=== PATIENT | male | born 1995 | race Caucasian/White ===

== ENCOUNTER 2017-08-15 14:18 | Emergency (ER) | payer OTHER ==
[~2017-08-15] VITALS: Ht 177.8 cm; Wt 77.1 kg
[~2017-08-15 14:18] MED LIST: AMOXICILLIN500 M1 PO; NORCO 5-325 TA1 EACH PO
[2017-08-15] MEDS ORDERED: NOHOMEMEDICATIONS (14:27)
[2017-08-15 14:44] LABS: ABSOLUTE EOSINOPHILS 0.2 thou/uL (0.0-0.7); ABSOLUTE LYMPHOCYTES 2.2 thou/uL (0.8-5.3); ABSOLUTE MONOCYTES 0.6 thou/uL (0.0-1.2); ABSOLUTE NEUTROPHILS 6.7 thou/uL (1.6-8.1); BASOPHILS 0.3 %; EOSINOPHILS 1.6 %; HEMATOCRIT 46.5 % (42.0-52.0); HEMOGLOBIN 16.1 gm/dL (14.0-18.0); LYMPHOCYTES 22.9 %; MCH 31.7 pg (26.0-34.0); MCHC 34.7 g/dL (28.0-37.0); MCV 91.3 fL (80.0-100.0); MONOCYTES 6.5 %; MPV 7.9 fl. (7.2-11.1); NUCLEATED RBCS 0 /100WBC; PLATELET COUNT* 262 thou/uL (150-400); POLYS 68.7 %; RBC 5.09 mil/uL (4.50-6.00); RDW-CV 13.1 % (10.5-14.5); WBC 9.8 thou/uL (4.0-11.0)
[2017-08-15 14:53] LABS: CALCIUM 8.7 mg/dL (8.5-10.1); CREATININE 0.8 mg/dL (0.6-1.3); POTASSIUM 3.3 mmol/L (3.5-5.1)
[2017-08-15 14:58] LABS: ALBUMIN 3.8 g/dL (3.4-5.0); TOTAL BILIRUBIN 0.5 mg/dL (<0.1-1.0); TOTAL PROTEIN 6.9 g/dL (6.4-8.2)
[2017-08-15] MEDS ORDERED: CLEOCIN HCL150 MG PO (15:51)
[2017-08-15] MEDS ORDERED: NAPROSYN500 MG PO (15:51)
[2017-08-15 16:03] VITALS: BP 120/60
== END 2017-08-15 16:03 | disposition home or self-care (01) ==
LOC: M.ERS 14:18
PROVIDERS: Physician Assistant
DX: K04.7 Periapical abscess without sinus (principal); L03.211 Cellulitis of face

== ENCOUNTER 2020-01-25 09:33 | Emergency (ER) | payer OTHER ==
[~2020-01-25] VITALS: Ht 175.3 cm; Wt 81.7 kg
[~2020-01-25 09:33] MED LIST changes: +CLEOCIN HCL150 MG PO; +NAPROSYN500 MG PO; +NOHOMEMEDICATIONS
[2020-01-25] MEDS ORDERED: NAPROSYN500 MG PO (10:27)
[2020-01-25 10:41] VITALS: BP 138/79
== END 2020-01-25 10:41 | disposition home or self-care (01) ==
LOC: M.ERS 09:33
DX: S60.222A Contusion of left hand, initial encounter (principal); Y08.89XA Assault by other specified means, initial encounter; Y93.89 Activity, other specified; Y92.89 Other specified places as the place of occurrence of the external cause; Y99.8 Other external cause status

== ENCOUNTER 2020-03-15 16:21 | Emergency (ER) | payer OTHER ==
[~2020-03-15] VITALS: Ht 175.3 cm; Wt 82.1 kg
[2020-03-15 16:58] LABS: ABSOLUTE EOSINOPHILS 0.2 thou/uL (0.0-0.7); ABSOLUTE LYMPHOCYTES 2.3 thou/uL (0.8-5.3); ABSOLUTE MONOCYTES 0.4 thou/uL (0.0-1.2); ABSOLUTE NEUTROPHILS 4.2 thou/uL (1.6-8.1); BASOPHILS 0.4 %; EOSINOPHILS 2.4 %; HEMATOCRIT 46.4 % (42.0-52.0); HEMOGLOBIN 16.3 gm/dL (14.0-18.0); LYMPHOCYTES 32.7 %; MCH 32.3 pg (26.0-34.0); MCHC 35.2 g/dL (28.0-37.0); MCV 91.9 fL (80.0-100.0); MONOCYTES 5.7 %; MPV 7.3 fl. (7.2-11.1); NUCLEATED RBCS 0 /100WBC; PLATELET COUNT* 259 thou/uL (150-400); POLYS 58.8 %; RBC 5.04 mil/uL (4.50-6.00); RDW-CV 12.9 % (10.5-14.5); WBC 7.1 thou/uL (4.0-11.0)
[2020-03-15 17:06] LABS: CALCIUM 8.8 mg/dL (8.5-10.1); CREATININE 0.9 mg/dL (0.6-1.3); POTASSIUM 3.5 mmol/L (3.5-5.1)
[2020-03-15 17:10] LABS: ALBUMIN 3.7 g/dL (3.4-5.0); TOTAL BILIRUBIN 0.4 mg/dL (<0.1-1.0); TOTAL PROTEIN 6.5 g/dL (6.4-8.2)
[2020-03-15 17:13] LABS: URINE BILIRUBIN NEGATIVE (Negative); URINE BLOOD NEGATIVE (Negative); URINE CLARITY CLEAR; URINE COLOR YELLOW; URINE GLUCOSE-RANDOM NEGATIVE (Negative); URINE KETONES NEGATIVE (Negative); URINE LEUKOCYTES-REFLEX NEGATIVE (Negative); URINE NITRITE-REFLEX NEGATIVE (Negative); URINE PROTEIN NEGATIVE (Negative); URINE SPECIFIC GRAVITY >= 1.030 (1.005-1.030); URINE UROBILINOGEN 0.2 E.U./dl (0.2-1.0)
[2020-03-15] MEDS ORDERED: ONDANSETRON ODT4 MG PO (18:18)
[2020-03-15 18:30] VITALS: BP 141/82
== END 2020-03-15 18:30 | disposition home or self-care (01) ==
LOC: M.ERS 16:21
PROVIDERS: Physician Assistant
DX: R11.2 Nausea with vomiting, unspecified (principal); R10.31 Right lower quadrant pain; R10.32 Left lower quadrant pain; F17.210 Nicotine dependence, cigarettes, uncomplicated

== ENCOUNTER 2020-06-24 16:05 | Emergency (ER) | payer OTHER ==
[~2020-06-24] VITALS: Ht 175.3 cm; Wt 81.7 kg
[~2020-06-24 16:05] MED LIST changes: +ONDANSETRON ODT4 MG PO
[2020-06-24] MEDS ORDERED: TRAMADOL 50 MG50 MG PO (17:35)
[2020-06-24] MEDS ORDERED: NAPROSYN500 MG PO (17:35)
[2020-06-24 18:07] VITALS: BP 147/82
== END 2020-06-24 18:07 | disposition home or self-care (01) ==
LOC: M.ERS 16:05
DX: R07.81 Pleurodynia (principal); Z20.828 Contact with and (suspected) exposure to other viral communicable diseases; F12.90 Cannabis use, unspecified, uncomplicated; X50.0XXA Overexertion from strenuous movement or load, initial encounter; Y93.89 Activity, other specified; Y92.69 Other specified industrial and construction area as the place of occurrence of the external cause; Y99.9 Unspecified external cause status